=== PATIENT | male | born 1975 | race Hispanic/Latino ===

== ENCOUNTER → 2018-10-17 15:19 | Outpatient (CLI) | payer SELFPAY ==
--- NOTE | 2018-10-17 15:32 | DI.RAD.S_ITS ---
PROCEDURE: XR FEMUR RT MIN 2V INDICATIONS: RIGHT LEG PAIN TECHNIQUE: 2 views of the femur were acquired. COMPARISON: [facility], CR, XR ANKLE RT 2V, 10/17/2018, 15:33. FINDINGS: Bones: No fractures or dislocations. No suspicious bony lesions. Soft tissues: No suspicious soft tissue calcifications or masses. IMPRESSION: No displaced fractures are seen on these plain films. If there is focal tenderness, or other clinical concern for a fracture not seen on these images in this patient with a history of trauma, please consider a dedicated CT or a short-term followup plain film series (in 1-2 weeks) for further evaluation. Dictated by: Mayank Briggs M.D. on 10/17/2018 at 15:07 Approved by: Mayank Briggs M.D. on 10/17/2018 at 15:07
--- NOTE | 2018-10-17 15:32 | DI.RAD.S_ITS ---
PROCEDURE: XR ANKLE RT 2V INDICATIONS: RIGHT LEG PAIN TECHNIQUE: 3 views of the ankle were acquired. COMPARISON: [facility], CR, XR FEMUR RT MIN 2V, 10/17/2018, 15:33. FINDINGS: Bones: There is a mildly displaced medial malleolar fracture seen, with intra-articular involvement. No additional fractures are detected. The ankle mortise does not appear widened. The talar dome demonstrates no criss abnormality. No suspicious lytic or blastic lesions are seen. Soft tissues: Soft tissue swelling is seen medially. IMPRESSION: Medial malleolar fracture, with intra-articular involvement and associated soft tissue swelling. Dictated by: Mayank Briggs M.D. on 10/17/2018 at 15:05 Approved by: Mayank Briggs M.D. on 10/17/2018 at 15:06
== END ==
PROVIDERS: Visit Provider Physician Assistant
DX: S82.51XA Displaced fracture of medial malleolus of right tibia, initial encounter for closed fracture (principal); M25.572 Pain in left ankle and joints of left foot
CPT/HCPCS: 73552; 73600